=== PATIENT | female | born 2000 | race Two or more races ===

== ENCOUNTER 2021-10-13 21:34 | Emergency (ER) | payer MEDICAID ==
[~2021-10-13] VITALS: Ht 165.1 cm; Wt 63.0 kg
[2021-10-13 22:02] VITALS: BP 125/81
[2021-10-14] MEDS ORDERED: PREDNISONE 20MG TABLET PO ONE (00:45)
[2021-10-14] MEDS ORDERED: IPRATROPIUM/ALBUTEROL 0.5-3(2.5)MG/3ML NEB HHN ONE (00:45)
[2021-10-14] MEDS ORDERED: P20 MT (02:12)
[2021-10-14] MEDS ORDERED: ALBU6.7H9 INH (02:12)
[2021-10-14] MEDS ORDERED: IBUP-2028 MT (02:12)
== END 2021-10-14 02:30 | disposition home or self-care (01) ==
LOC: ER 21:34
DX: M79.621 Pain in right upper arm (principal); J45.909 Unspecified asthma, uncomplicated; W01.0XXA Fall on same level from slipping, tripping and stumbling without subsequent striking against object, initial encounter; Y93.89 Activity, other specified; Y92.9 Unspecified place or not applicable
CPT/HCPCS: 71045; 73060; 94640; 99284; J7512; Z7610